=== PATIENT | female | born 1960 | race Caucasian/White ===

== ENCOUNTER 2017-09-08 12:58 | Emergency (ER) | payer OTHER, BC ==
[~2017-09-08] VITALS: Ht 167.6 cm; Wt 77.1 kg
[~2017-09-08 12:58] MED LIST: ASPIR 8181 MG PO; BUPROPION HCL100 MG PO; CIPRO500 MG PO; CLARITIN10 M2 PO; LIPITOR40 MG PO; NORCO 5-325 TA1 EACH PO; PROMETHAZINE-COD5 ML PO; PYRIDIUM200 MG PO; ZOFRAN8 MG PO
== END 2017-09-08 13:38 | disposition home or self-care (01) ==
LOC: ED 12:58
PROC: 2W3DX1Z Immobilization of Left Lower Arm using Splint (ICD-10-PCS; principal; 2017-09-08)
DX: S63.502A Unspecified sprain of left wrist, initial encounter (principal); Z87.891 Personal history of nicotine dependence; Z88.2 Allergy status to sulfonamides; Z88.0 Allergy status to penicillin; Z88.8 Allergy status to other drugs, medicaments and biological substances; Z79.899 Other long term (current) drug therapy; W00.0XXA Fall on same level due to ice and snow, initial encounter
CPT/HCPCS: 29125; 73110; 99283

== ENCOUNTER 2024-02-14 12:22 | Emergency (ER) | payer OTHER, BC ==
[~2024-02-14] VITALS: Ht 167.6 cm; Wt 77.4 kg
[~2024-02-14 12:22] MED LIST changes: +CETIRIZINE HCL10 MG PO; +DICLOFENAC EPO1 EACH TD; +LIDODERM1 EACH TD; +MEDI-PATCH WIT1 EACH TOP; +OMEGA 3 1,0001 EACH PO
[2024-02-14] MEDS ORDERED: SODIUM CHLORIDE 0.9% 1,000 ML IV ONE (12:45)
[2024-02-14] MEDS ORDERED: HYDROmorphone HCL 1 MG/ML SYR IV PRN (12:45)
[2024-02-14 12:56] LABS: BASOPHILS 0.4 % (0-2); HEMATOCRIT 41.4 % (35.0-50.0); LYMPHOCYTES 43.6 % (24-44); MCH 30.6 (27-36); MCHC 33.9 g/dl (30-36); MCV 90.1 fl (81-99); MONOCYTES 8.3 % (0-12); NEUTROPHILS 44.7 % (39-80); PLATELET COUNT 331 K/uL (140-440); RDW 13.2 (10.5-15.0)
[2024-02-14 13:14] LABS: ALBUMIN 3.7 g/dL (3.4-5.0); ALCOHOL, MEDICAL <3 ng/dL (<3); ALKALINE PHOSPHATASE 80 U/L (46-116); ALT (SGPT) 35 U/L (14-59); AST (SGOT) 15 U/L (15-37); BILIRUBIN, TOTAL 0.5 ng/dL (0.2-1.0); CARBON DIOXIDE 26 mmol/L (21-32); CHLORIDE 102 mmol/L (98-107); CREATININE, SERUM 0.92 mg/dL (0.55-1.02); GLOMERULAR FILTRATION RATE,EST 70 mL/min (>60); PROTEIN, TOTAL 7.4 g/dL (6.4-8.2); UREA NITROGEN 15 mg/dL (7-18)
[2024-02-14 13:33] LABS: ABO A; ANTIBODY SCREEN NEGATIVE; RH POSITIVE
[2024-02-14] MEDS ORDERED: KETOROLAC TROMETHAMINE 30 MG/ML VIAL IV ONE (14:00)
[2024-02-14] MEDS ORDERED: LIDOCAINE/RACEPINEP/TETRACAINE 3 ML SYR TOP ONE (14:15)
[2024-02-14] MEDS ORDERED: HYDROCODON-ACE1 EA10 PO (15:05)
[2024-02-14] MEDS ORDERED: ONDANSETRON ODT8 MG PO (15:05)
[2024-02-14 15:20] VITALS: BP 131/92
== END 2024-02-14 15:21 | disposition home or self-care (01) ==
LOC: ED 12:22
PROVIDERS: Emergency Medicine
DX: S01.01XA Laceration without foreign body of scalp, initial encounter (principal); S30.0XXA Contusion of lower back and pelvis, initial encounter; W19.XXXA Unspecified fall, initial encounter; Z87.891 Personal history of nicotine dependence; Z88.2 Allergy status to sulfonamides; Z88.0 Allergy status to penicillin; Z88.8 Allergy status to other drugs, medicaments and biological substances; Z79.899 Other long term (current) drug therapy
CPT/HCPCS: 12002; 36415; 70450; 71260; 72125; 74177; 80053; 80307; 85025; 86850; 86900; 86901; 99283-25; G0480; J1170; J1885; J7030; Q9967

== ENCOUNTER 2024-08-10 09:45 | Emergency (ER) | payer BC, OTHER ==
[~2024-08-10] VITALS: Ht 167.6 cm; Wt 70.1 kg
[~2024-08-10 09:45] MED LIST changes: +HYDROCODON-ACE1 EA10 PO; +ONDANSETRON ODT8 MG PO
[2024-08-10] MEDS ORDERED: TETANUS-DIPHTHERIA TOXOIDS/PF 0.5 ML VIAL IM ONE (10:15)
[2024-08-10] MEDS ORDERED: CLEOCIN HCL300 MG PO (10:15)
[2024-08-10] MEDS ORDERED: clindamycin HCL 300 MG CAP PO ONE (10:15)
[2024-08-10] MEDS ORDERED: clindamycin HCL 300 MG HOME.PACK PO ONE (10:45)
[2024-08-10 10:50] VITALS: BP 138/70
== END 2024-08-10 10:51 | disposition home or self-care (01) ==
LOC: ED 09:45
DX: S61.250A Open bite of right index finger without damage to nail, initial encounter (principal); Z88.2 Allergy status to sulfonamides; Z88.0 Allergy status to penicillin; Z88.8 Allergy status to other drugs, medicaments and biological substances; Z79.899 Other long term (current) drug therapy; Z23 Encounter for immunization; Y04.1XXA Assault by human bite, initial encounter
CPT/HCPCS: 90471; 90714; 99283-25